=== PATIENT | female | born 1960 | race Caucasian/White ===

== ENCOUNTER → 2017-10-04 15:24 | Outpatient (CLI) | payer MEDICARE, SELFPAY ==
--- NOTE | 2017-10-04 15:36 | XR_ITS ---
Left foot Weightbearing Foot 3 Views HISTORY: ITS.REASON: LT FOOT INJURY ORDERING PHYSICIAN: Katty Delatorre PATIENT AGE: 57 years COMPARISON: None FINDINGS: No fracture or dislocation. Minimal hypertrophic changes are present in the midfoot dorsally. 9 mm calcaneal spur. Normal alignment. IMPRESSION: Mild degenerative changes as described above, no acute finding
== END ==
PROVIDERS: PCP Nurse Practitioner Family; Visit Provider Nurse Practitioner Family
DX: S99.922A Unspecified injury of left foot, initial encounter (principal)
CPT/HCPCS: 73630

== ENCOUNTER → 2017-12-10 12:24 | Outpatient (CLI) | payer MEDICARE, SELFPAY ==
[2017-12-10 13:10] LABS: Alanine Aminotransferase 28 U/L (12-78); Albumin Level 3.4 gm/dL (3.4-5.0); Albumin/Globulin Ratio 0.9 (1.1-1.8); Alkaline Phosphatase 77 U/L (46-116); Bilirubin,Total 0.2 mg/dL (0.2-1.0); Blood Urea Nitrogen 19 mg/dL (7-18); Calcium 9.3 mg/dL (8.5-10.1); Carbon Dioxide 29 mmol/L (21.0-32.0); Creatinine,Serum 0.97 mg/dL (0.55-1.02); Estimated Glomerular Filt Rate 59 ml/min (>60); GFR (African American) 72 ML/MIN (>60); Glucose 108 mg/dL (74-106); Sodium 140 mmol/L (136-145); Total Protein,Serum 7.4 gm/dL (6.4-8.2)
[2017-12-10 14:15] LABS: Anion Gap 11.8 mEq/L (5-15); Chloride 103 mmol/L (98-107)
[2017-12-10 15:17] LABS: Aspartate Amino Transferase 23 U/L (15-37); Potassium 3.8 mmoL/L (3.5-5.1)
== END ==
PROVIDERS: Visit Provider Nurse Practitioner Family
DX: I10 Essential (primary) hypertension (principal)
CPT/HCPCS: 36415; 80053

== ENCOUNTER → 2018-07-25 12:20 | Outpatient (CLI) | payer MEDICARE, SELFPAY ==
--- NOTE | 2018-07-25 12:36 | XR_ITS ---
XR ankle wt bearing RT min 3V HISTORY: ITS.REASON: pain ORDERING PHYSICIAN: Magi Young DPM PATIENT AGE: 57 years Comparison: None FINDINGS: There is an old distal tibia and fibular fracture with callus formation at fracture site. There is an intramedullary massimo within the distal tibia. At the distal aspect of the right laterally there is a distal tip of the screw. The proximal aspect of the screw and the screw head is missing. There are no previous exams available for comparison. Ankle joint itself has an unremarkable appearance. IMPRESSION: Unremarkable ankle. Old healed distal tib-fib fracture with a tibial intramedullary massimo and a screw fragment noted laterally
--- NOTE | 2018-07-25 12:36 | XR_ITS ---
XR foot wt bearing LT 3V HISTORY: ITS.REASON: pain ORDERING PHYSICIAN: Magi Young DPM PATIENT AGE: 57 years COMPARISON: None FINDINGS: No fracture or dislocation. No lytic or blastic change. There is normal mineralization.. The joint spaces are well-preserved. No significant degenerative/arthritic changes. No erosive changes evident. There is a prominent calcaneal spur IMPRESSION: Negative, no acute finding
--- NOTE | 2018-07-25 12:36 | XR_ITS ---
XR ankle wt bearing LT min 3V HISTORY: ITS.REASON: pain ORDERING PHYSICIAN: Magi Young DPM PATIENT AGE: 57 years Comparison: None FINDINGS: No fracture or dislocation. No lytic or blastic change. There is normal mineralization.. The joint spaces are well-preserved. No significant degenerative/arthritic changes. No erosive changes evident. IMPRESSION: Negative ankle, no acute finding
--- NOTE | 2018-07-25 12:36 | XR_ITS ---
XR foot wt bearing RT 3V HISTORY: ITS.REASON: pain ORDERING PHYSICIAN: Magi Young DPM PATIENT AGE: 57 years COMPARISON: None FINDINGS: No fracture dislocation. No lytic or blastic change. There is normal mineralization.. The joint spaces are well-preserved. No significant degenerative/arthritic changes. No erosive changes evident. There is a prominent calcaneal spur nonspecific IMPRESSION: Negative, no acute finding
== END ==
PROVIDERS: PCP Nurse Practitioner Family; Visit Provider Podiatrist
DX: M76.821 Posterior tibial tendinitis, right leg (principal); M76.822 Posterior tibial tendinitis, left leg; M79.672 Pain in left foot; M79.671 Pain in right foot
CPT/HCPCS: 73610; 73630

== ENCOUNTER → 2019-07-06 14:53 | Outpatient (CLI) | payer MEDICARE, SELFPAY ==
--- NOTE | 2019-07-06 15:03 | XR_ITS ---
PROCEDURE: XR KNEE LT 3V CLINICAL INDICATION: LT KNEE PAIN COMPARISON: No exams were available for comparison FINDINGS: No fracture or dislocation. No lytic or blastic change. There is normal mineralization. The joint spaces are well-preserved. No significant degenerative/arthritic changes. No erosive changes evident. Other findings:None. IMPRESSION: No acute findings. Dictated by: Ruslan Marley MD 07/06/2019 17:11 Electronically signed by Ruslan Marley MD in [place] 07/06/2019 17:11
== END ==
PROVIDERS: PCP Nurse Practitioner Family; Visit Provider Nurse Practitioner Family
DX: M25.562 Pain in left knee (principal)
CPT/HCPCS: 73562

== ENCOUNTER → 2019-07-26 13:02 | Outpatient (CLI) | payer MEDICARE, SELFPAY ==
--- NOTE | 2019-07-26 13:09 | XR_ITS ---
PROCEDURE: XR KNEE LT 4V CLINICAL INDICATION: left knee pain COMPARISON: XR KNEE LT 3V from 07/06/2019 FINDINGS: No fracture or dislocation. No lytic or blastic change. There is normal mineralization. There is minimal spurring along the lateral aspect of the patella and superior aspect of the patella. There is slight decrease in the medial joint space. IMPRESSION: Minimal osteoarthritic changes Dictated by: Ruslan Marley MD 07/26/2019 13:32 Electronically signed by Ruslan Marley MD in [place] 07/26/2019 13:32
== END ==
PROVIDERS: PCP Nurse Practitioner Family; Visit Provider Orthopaedic Surgery
DX: M25.562 Pain in left knee (principal)
CPT/HCPCS: 73564

== ENCOUNTER → 2019-08-09 13:23 | Outpatient (CLI) | payer MEDICARE, SELFPAY ==
--- NOTE | 2019-08-09 13:23 | MR_ITS ---
PROCEDURE: MR KNEE LT WO CON CLINICAL INDICATION: evaluate for meniscus tear Left knee pain, medial sided knee pain COMPARISON: XR KNEE LT 4V from 07/26/2019 TECHNIQUE: Routine multiplanar multi echo sequences are performed without gadolinium enhancement. FINDINGS: Cruciate ligaments appear intact. There is some increased T2 signal involving the proximal aspect of the medial collateral ligament suggesting a sprain without definite tear. Lateral collateral ligament is intact. The patellar tendon and quadriceps tendon have an unremarkable appearance. No definite medial meniscal tear. There is increased T2 signal involving the anterior horn of the lateral meniscus but does not appear to communicate with the meniscal surface on more than 1 image and does not meet strict MRI criteria for meniscal tear. The patellar cartilage is preserved. There is a small knee joint effusion. There is a small amount of prepatellar edema. There are minimal osteoarthritic changes with minimal spurring along the distal femur and proximal tibia and dorsal patella. There is some slight heterogeneous increased T2 signal along the distal shaft of the femur dorsally may be related to some residual red marrow. IMPRESSION: 1. Sprain of the medial collateral ligament. 2. Small knee joint effusion with minimal osteoarthritic change. 3. No definite meniscal tear or cruciate ligament tear Dictated by: Ruslan Marley MD 08/10/2019 18:55 Electronically signed by Ruslan Marley MD in [place] 08/10/2019 18:55
== END ==
PROVIDERS: PCP Nurse Practitioner Family; Visit Provider Orthopaedic Surgery
DX: M25.562 Pain in left knee (principal)
CPT/HCPCS: 73721

== ENCOUNTER → 2020-02-22 11:36 | Outpatient (POV) | payer MEDICARE, SELFPAY ==
[2020-02-22 11:55] VITALS: BP 135/88; PULSE 85; RESP 18; O2SAT 98; BMI 35.2
--- NOTE | 2020-02-22 15:59 | HMH.PMCON ---
Assessment and Plan (1) Bilateral foot pain Current visit: Yes Status: Chronic Category: Medical Code(s): M79.671 - Pain in right foot; M79.672 - Pain in left foot (2) CRPS (complex regional pain syndrome type I) Current visit: Yes Status: Chronic Qualifiers: Complex regional pain syndrome affected site: lower extremity Laterality: bilateral Qualified Code(s): G90.523 - Complex regional pain syndrome I of lower limb, bilateral Category: Medical Code(s): G90.50 - Complex regional pain syndrome I, unspecified - Assessment and plan all Dx Assessment and Plan for all problems:: We will set the patient up for sympathetic nerve block we will then set her up for physical therapy immediately after this. I will follow-up with her after this reassess her symptoms at that time she is to continue with her Lyrica and tramadol. she has been instructed to call the office if she has any issues prior to her next appointment. Dr. Lyle has reviewed this note and agrees with this plan of care. This note was dictated using voice recognition software and may contain errors or omissions HPI - Data of Consult Consult date: 02/22/20 Requesting Physician: Dana Leyva APRN Primary Care Provider: Katty Delatorre APRN - Consult Narrative Reason for consult: Right lower leg pain History of present illness: Ms. Osorio is a 59 year old female for consultation in regards to her pain in her bilateral feet. She has continual numbness and tingling in bilateral legs and feet. This comes secondary after a trauma that she endured 24 years ago. She had a compound fracture with surgical intervention at the time. Patient has had numbness and tingling since. Patient is currently on Lyrica and tramadol. Patient states that this is slightly beneficial however she is still having difficulty with activities of daily living. She rates her pain today a 7 out of 10. She has difficulty with walking. She has noted color changes, swelling, temperature changes in her bilateral lower extremities. Patient and I discussed options in regards to treatment. She has had no formal physical therapy. We discussed sympathetic nerve blocks along with physical therapy to see if this is beneficial. Patient's not on any anticoagulation therapy. CC: Dana Leyva APRN [facility] History I have reviewed the patient's past medical history: Yes Medical History: Reports:: Hypertension Denies:: Cancer, Diabetes Mellitus Type 1, Diabetes Mellitus Type 2, MRSA *Have you ever received a pneumonia vaccine?: No *Have you received a flu vaccine this season?: No Other Medical History: Reports: Arthritis Laterality Cases: Right: Other Other Surgeries: Yes: Cholecystectomy, Other Amputation: No Fractures: No - *Social History Smoking Status: Never smoker Alcohol Intake: never Alcohol Intake Frequency:: a few times a week Substance Use Type: denies use *Occupational Status:: other Housing: house Household Members: other *Travel in the last 8 weeks: None Family Hx:: Unable to obtain Review of Systems - Review of Systems ROS General: no recent weight change, no fever, no sleep disturbances Respiratory: no cough, no shortness of air, no recurring pulmonary infections Cardiovascular/Peripheral Vascular: No chest pain, No palpitations, no edema, no shortness of breath. Gastrointestinal: no new onset incontinence, normal bowel movements reported Genitourinary: no new onset incontinence Musculoskeletal: Bilateral leg and foot pain Psychiatric: normal mood/ affect Neurological: [denies new onset weakness in extremities], [denies new onset balance issues] Meds Home Medications Medication Instructions Recorded Confirmed Type lisinopril 5 mg tablet 5 mg PO DAILY 06/14/18 08/08/18 History tramadol 50 mg tablet 50 mg PO Q6H 06/14/18 08/08/18 History Allergies Allergy/AdvReac Type Severity Reaction Status Date / Time No Known Allergie
== END ==
PROVIDERS: PCP Nurse Practitioner Family; Visit Provider Clinical Nurse Specialist Family Health
DX: M79.671 Pain in right foot (principal); G90.523 Complex regional pain syndrome I of lower limb, bilateral
CPT/HCPCS: 99202

== ENCOUNTER 2020-03-22 12:55 | Day surgery (SDC) | payer MEDICARE, SELFPAY ==
[2020-03-22 13:29] VITALS: BP 180/91; PULSE 78; RESP 18; TEMP 36.6; O2SAT 98; BMI 33.6
--- NOTE | 2020-03-22 13:41 | HMH.PMPROC ---
- Procedure Date: 03/22/20 Time: 13:41 Anesthesiologist:: Jeet Lyle MD Complications:: None Pre-procedure Diagnosis:: CRPS type I symptoms of both lower extremities Post-procedure Diagnosis:: Same Indications for Procedure:: This patient is a pleasant 59-year-old white female who we are treating for bilateral foot pain. Patient has continuous numbness and tingling in both feet. She had compound fracture to both lower extremities and has had significant issues since then. She has noted color changes, swelling temperature changes in bilateral lower extremities. Given her autonomic symptoms in her lower extremities we will do a lumbar epidural sympathetic block today followed by physical therapy to see if this will help with her pain symptoms. Procedure Details:: Lumbar epidural sympathetic block Informed consent was obtained and the risk and benefits of the procedure was explained to the patient. The patient was taken to the procedure room. The patient was placed prone on the procedure table. The patient was prepped and draped in sterile fashion. C-arm fluoroscopy was used to view the lumbar spine. Skin and subcutaneous tissues were anesthetized using lidocaine. I placed an 18-gauge epidural needle and advanced into the L4-L5 interspace using fluoroscopic guidance and [id number] to air. After confirmation of needle placement in the epidural space with dye I injected 8 mL of lidocaine 1.5% with Depo-Medrol 80 mg. Patient tolerated the procedure well with no complications. Plan and Disposition:: She is to follow this with physical therapy today. We will follow-up with her in 2 weeks. Will reevaluate symptoms at that time. If she does not get any relief with lumbar epidural sympathetic blocks and physical therapy she may be a candidate for spinal cord stimulation in the future for long-term relief.
[2020-03-22 13:46] VITALS: BP 147/78; PULSE 85; RESP 18; O2SAT 98
[2020-03-22 14:03] VITALS: BP 175/95; PULSE 75; RESP 18; O2SAT 98
== END 2020-03-22 14:04 | disposition home or self-care (01) ==
LOC: SC.PAINP 12:56
PROVIDERS: PCP Nurse Practitioner Family; Visit Provider Anesthesiology
DX: G90.523 Complex regional pain syndrome I of lower limb, bilateral; I10 Essential (primary) hypertension; E78.5 Hyperlipidemia, unspecified; B19.20 Unspecified viral hepatitis C without hepatic coma; Z90.49 Acquired absence of other specified parts of digestive tract; Z79.899 Other long term (current) drug therapy
CPT/HCPCS: 62323; 64520; J1040; Q9966

== ENCOUNTER → 2020-04-15 08:46 | Outpatient (POV) | payer MEDICARE, SELFPAY ==
[2020-04-15 08:48] VITALS: BP 132/88; PULSE 78; RESP 18; O2SAT 98; BMI 32.8
--- NOTE | 2020-04-15 09:09 | HMH.PAINSOAP ---
[facility] Pain Management SOAP Note Subjective:: Ms. Osorio is a 59 year old female for follow-up after sympathetic nerve block for her pain in her bilateral feet. She has continual numbness and tingling in bilateral legs and feet. This comes secondary after a trauma that she endured 24 years ago. She had a compound fracture with surgical intervention at the time. Patient has had numbness and tingling since. Patient is currently on Lyrica and tramadol. Patient states that this is slightly beneficial however she is still having difficulty with activities of daily living. She rates her pain today a 5 out of 10. She has difficulty with walking. She has noted color changes, swelling, temperature changes in her bilateral lower extremities. Patient did extremely well with her sympathetic nerve block. She rates her pain today a 5 out of 10. Patient states that prior to her injection she was unable to walk her dogs more than a half a mile. Patient states that after her injection she is now able to walk a mile. Patient is interested in pursuing spinal cord stimulation. We discussed a plan of care that included a second sympathetic nerve block and moving forward with a psychological evaluation. ROS General: no recent weight change, no fever, no sleep disturbances Respiratory: no cough, no shortness of air, no recurring pulmonary infections Cardiovascular/Peripheral Vascular: No chest pain, No palpitations, no edema, no shortness of breath. Gastrointestinal: no new onset incontinence, normal bowel movements reported Genitourinary: no new onset incontinence Musculoskeletal: Bilateral foot pain Psychiatric: normal mood/ affect Neurological: [denies new onset weakness in extremities], [denies new onset balance issues] Objective:: Physical Exam General: Alert and oriented x3, no acute distress, pleasant and cooperative, [on room air] Lungs: Resps E/U, Symmetrical chest expansion, Eyes: PERRL Musculoskeletal: [place] bilateral feet somewhat guarded secondary to pain, deep tendon reflexes normal, strength in upper and lower extremities [5/5], [abnormal gait noted], Neurological: speech clear, christmas tree grader equal, patient has decreased sensation to palpation bilateral lower extremities, she has noted color changes bilateral feet. She also has noted temperature differences between her feet. Assessment:: CRPS type I bilateral lower extremity Plan:: We will set her up for psychological evaluation to pursue spinal cord stimulation with a [employer] stimulator. We will also set her up for repeat sympathetic block given the temporary relief that she did receive from it. I do believe it would benefit her to repeat it. Patient does physical therapy post injection. I will follow up with her after this reassess her symptoms at that time she is not on any anticoagulation therapy. Dr. Lyle has reviewed this note and agrees with this plan of care. This note was dictated using voice recognition software and may contain errors or omissions [facility] History I have reviewed the patient's past medical history: Yes Medical History: Reports:: Hyperlipidemia, Hypertension Denies:: Cancer, Diabetes Mellitus Type 1, Diabetes Mellitus Type 2, MRSA, Seizures *Have you ever received a pneumonia vaccine?: Yes *Have you received a flu vaccine this season?: Yes Other Medical History: Reports: Arthritis. Denies: Blood Transfusion Reaction Laterality Cases: Right: Other Other Surgeries: Yes: Cholecystectomy, Other Amputation: No Fractures: No - *Social History Smoking Status: Never smoker Alcohol Intake: never Alcohol Intake Frequency:: a few times a week Substance Use Type: denies use *Occupational Status:: other Housing: house Household Members: spouse, children *Travel in the last 8 weeks: None Family Hx:: Unable to obtain
== END ==
PROVIDERS: PCP Nurse Practitioner Family; Visit Provider Clinical Nurse Specialist Family Health
DX: G90.523 Complex regional pain syndrome I of lower limb, bilateral
CPT/HCPCS: 99212

== ENCOUNTER 2020-04-26 12:53 | Day surgery (SDC) | payer MEDICARE, SELFPAY ==
[2020-04-26 12:56] VITALS: BP 147/85; PULSE 64; RESP 18; TEMP 36.4; O2SAT 100; BMI 32.8
[2020-04-26 13:12] VITALS: BP 140/74; PULSE 85; RESP 18; O2SAT 98
[2020-04-26 13:15] VITALS: BP 142/78; PULSE 85; RESP 18; O2SAT 98
--- NOTE | 2020-04-26 13:27 | P.PCN_ITS ---
- Procedure Date: 04/26/20 Time: 13:27 Anesthesiologist:: Jeet Lyle MD Complications:: None Pre-procedure Diagnosis:: Complex regional pain syndrome type I of bilateral lower extremities and low back pain Post-procedure Diagnosis:: Same Indications for Procedure:: Patient is a pleasant 59-year-old white female who we are treating for pain in both feet with complex regional pain syndrome type I. Also she has some increasing low back pain. Low back pain has worsened since her last injection. She is not tender over the area there is no redness. There is no induration and there is no swelling. She has had increasing pain with activity. We will do a repeat lumbar epidural sympathetic block today to see if this will help with her pain symptoms. Procedure Details:: Lumbar epidural sympathetic block Informed consent was obtained and the risk and benefits of the procedure was explained to the patient. The patient was taken to the procedure room. The patient was placed prone on the procedure table. The patient was prepped and draped in sterile fashion. C-arm fluoroscopy was used to view the lumbar spine. Skin and subcutaneous tissues were anesthetized using lidocaine. I placed an 18-gauge epidural needle and advanced into the L5-S1 interspace using fluoroscopic guidance and [id number] to air. After confirmation of needle placement in the epidural space with dye I injected 6 mL of lidocaine 1.5% with Depo-Medrol 80 mg. Patient tolerated the procedure well with no complications. Plan and Disposition:: We will follow-up with patient in 1 week. We will reevaluate her symptoms. I am concerned that she is having increasing back pain since the injection. Also immediately after this injection she did have some increased back pain despite injecting local in the area. She may have an aspect of spinal stenosis. We will put her on prednisone 20 mg twice a day to see if this helps with her infla mmation. If this does not help with her symptoms I would recommend repeating an MRI of the lumbar spine.
[2020-04-26 13:36] VITALS: BP 186/89; PULSE 74; RESP 18; O2SAT 100
== END 2020-04-26 13:38 | disposition home or self-care (01) ==
LOC: SC.PAINP 12:54
PROVIDERS: PCP Nurse Practitioner Family; Visit Provider Anesthesiology
DX: M54.9 Dorsalgia, unspecified (principal); G90.523 Complex regional pain syndrome I of lower limb, bilateral
CPT/HCPCS: 64520; J1040; Q9966

== ENCOUNTER → 2020-04-29 10:38 | Outpatient (CLI) | payer MEDICARE, SELFPAY ==
--- NOTE | 2020-04-29 10:41 | MR_ITS ---
PROCEDURE: MR LUMBAR SPINE WO CON CLINICAL INDICATION: BACK PAIN LOWER BACK PAIN, BILATERAL LEG PAIN DOWN TO FEET. NO INJURY. NO PRIOR COMPARISON: MR MR KNEE LT WO CON from 08/09/2019 TECHNIQUE: Standard multiplanar multiecho sequences are performed without contrast. 3-D MIP and myelographic images are also rendered and reviewed FINDINGS: There is normal alignment. The spinal cord ends at the T12 area. L1-L2: Type 2 endplate changes involve the inferior endplate anteriorly at L1. L2-L3: Unremarkable. L3-L4: Mild facet and ligamentum hypertrophy. L4-5: Minimal bulging disc. Facet and ligamentum hypertrophy with bilateral lateral recess and foraminal narrowing with borderline narrowing of the canal. L5-S1: Mild facet ligamentum hypertrophy IMPRESSION: 1. Mild lumbar spondylosis as described above. 2. No extruded herniated disc evident. Dictated by: Ruslan Marley MD 05/01/2020 09:25 Ruslan Marley MD in [place] 05/01/2020 09:25
== END ==
PROVIDERS: PCP Nurse Practitioner Family; Visit Provider Anesthesiology
DX: M54.5 Low back pain (principal)
CPT/HCPCS: 72148; 76376

== ENCOUNTER → 2020-05-20 10:24 | Outpatient (POV) | payer MEDICARE, SELFPAY ==
[2020-05-20 10:37] VITALS: BP 144/74; PULSE 85; RESP 18; TEMP 36.8; O2SAT 98; BMI 34.5
--- NOTE | 2020-05-20 10:52 | HMH.PAINSOAP ---
[facility] Pain Management SOAP Note Subjective:: Patient is a pleasant 59-year-old white female who presents today for follow-up after sympathetic nerve block. Patient does well with these. She rates her pain a 4 out of 10. She still has constant pain however her sharp debilitating pain has subsided somewhat. Patient is continuing to work. Patient did have some back pain after her injection however that is all subsided as well. She had an MRI which showed mild spondylosis. Patient is being treated for complex regional pain syndrome bilateral lower extremities. Patient has had multiple surgeries on her feet and has developed pain, swelling, color changes, temperature changes to her feet. ROS General: no recent weight change, no fever, no sleep disturbances Respiratory: no cough, no shortness of air, no recurring pulmonary infections Cardiovascular/Peripheral Vascular: No chest pain, No palpitations, no edema, no shortness of breath. Gastrointestinal: no new onset incontinence, normal bowel movements reported Genitourinary: no new onset incontinence Musculoskeletal: bilateral foot pain Psychiatric: normal mood/ affect Neurological: Numbness tingling bilateral lower extremities, [denies new onset balance issues] Objective:: Physical Exam General: Alert and oriented x3, no acute distress, pleasant and cooperative, [on room air] Lungs: Resps E/U, Symmetrical chest expansion, Eyes: PERRL Musculoskeletal: Motion bilateral feet somewhat guarded secondary to pain, deep tendon reflexes normal, strength in upper and lower extremities [5/5], [abnormal gait noted] Neurological: speech clear, picture booker equal, no gross sensory deficits Assessment:: Complex regional pain syndrome type I bilateral lower extremities Plan:: Patient has her psychological evaluation scheduled for the of this month. I do believe she would be a good neurostimulator candidate. We had a long discussion and I answered her questions. I will follow-up with her after psychological evaluation reassess her symptoms at that time she has been instructed to call the office if she has any issues prior to her next appointment. Dr. Lyle has reviewed this note and agrees with this plan of care. This note was dictated using voice recognition software and may contain errors or omissions [facility] [place] History I have reviewed the patient's past medical history: Yes Medical History: Reports:: Hyperlipidemia, Hypertension Denies:: Cancer, Diabetes Mellitus Type 1, Diabetes Mellitus Type 2, MRSA, Seizures *Have you ever received a pneumonia vaccine?: No *Have you received a flu vaccine this season?: No Other Medical History: Reports: Arthritis. Denies: Blood Transfusion Reaction Laterality Cases: Right: Other Other Surgeries: Yes: Cholecystectomy, Other (fall (massimo in tib/fib R leg)) Amputation: No Fractures: No - *Social History Smoking Status: Never smoker Alcohol Intake: never Alcohol Intake Frequency:: a few times a week Substance Use Type: denies use *Occupational Status:: other Housing: house Household Members: spouse *Travel in the last 8 weeks: None Family Hx:: Unable to obtain
== END ==
PROVIDERS: PCP Nurse Practitioner Family; Visit Provider Clinical Nurse Specialist Family Health
DX: G90.523 Complex regional pain syndrome I of lower limb, bilateral
CPT/HCPCS: 99212

== ENCOUNTER 2020-05-29 09:00 | Outpatient (RCR) | payer MEDICARE, SELFPAY ==
--- NOTE | 2020-03-22 15:29 | HMH.PTOPEV ---
PT Outpatient Evaluation Rehab PT Outpatient Evaluation Start: 03/22/20 14:08 Freq: Status: Active Protocol: Document 03/22/20 14:35 SARAH (Rec: 03/22/20 15:29 SARAH [id number]) Electronically Signed By Norman Beth, PT 03/22/20 14:35 Outpatient Therapy Subjective History Subjective History Pt reports h/o chronic B feet/ ankle/calf/lower leg pain. Pt reports sereve R tib/fib compound fx ~20yrs ago, w/ORIF sx., and reports chronic compensatory gait pattern related to injury, and severe R achilles shortening d/t post -op positioning. Pt reports B feet/ankle pain, weakness, swelling, stiffness. Chief Complaint Pain,Stiff,Swelling,Weakness Symptom Type Ache,Dull Symptoms Relieved By Rest/Positioning,Heat Symptoms Aggravated By Standing,Physical Activity, Walking Prior Functional Limitations Housework,Standing,Walking, Stairs Current Functional Limitations Housework,Standing,Walking, Stairs Symptom Description Constant but Variable Level of pain today (0-10) 4 Pain scale - at its best (0-10) 3 Pain scale - at its worst (0-10) 9 Ankle/Foot Eval Gait Observation General Gait Pattern Observation Antalgic Gait Palpation Tenderness bilateral Ankle/Foot Palpation Findings Tenderness,Trigger Point Ankle/Foot Palpation Overall Comment ant tib mm, gastroc, L peroneals ROM left Ankle/Foot Dorsiflexion w/Knee Extended 0 Active Range Motion (degrees) Ankle/Foot Plantar Flexion Active Range 0-42 of Motion (degrees) Ankle/Foot Eversion Active Range of 0-8 Motion (degrees) Ankle/Foot Inversion Active Range of 0-10 Motion (degrees) Ankle/Foot ROM Limitations Pain Great Toe ROM Limitations Soft Tissue Tightness,Pain right Ankle/Foot Dorsiflexion w/Knee Extended 0 Active Range Motion (degrees) Ankle/Foot Plantar Flexion Active Range 0-45 of Motion (degrees) Ankle/Foot Eversion Active Range of 0-10 Motion (degrees) Ankle/Foot Inversion Active Range of 0-20 Motion (degrees) Great Toe ROM Limitations Soft Tissue Tightness,Pain MMT bilateral Ankle Dorsiflexion Strength Grade 4- Good- Ankle Plantarflexion Strength Grade 4- Good- Foot Eversion Strength Grade 3+ Fair+ Foot Inversion Strength Grade 3+ Fair+ Special Tests Ankle Anterior Drawer Test Positive Left,Positive R
--- NOTE | 2020-04-23 13:19 | HMH.RHREAS ---
Rehab Reassessment Rehab OP Re-assessment Start: 04/23/20 13:04 Freq: Status: Active Protocol: Document 04/23/20 13:04 [email or web address] (Rec: 04/23/20 13:19 [email or web address] [email or web address]) Electronically Signed By Norman Beth, PT 04/23/20 13:04 Rehab Re-assessment Subjective Subjective PT REPORTS 5-10 B FEET/ANKLE PAIN ON VAS, AND FEELS ~30-40 % BETTER OVERALL SINCE I EVAL Objective Objective Notes AROM: B ANKLE DF 0, PF 0-45, INV 0-25, EVR 0-15 MMT: B ANKLE DF 4/5, PF 4+/5, INV 4/5, EVR 4/5 TTP: B ANKLE PERONEAL INSERTION 3/4, ACHILLES INSERTION 3/4, SINUS TARSI 1-2 /4 Assessment Progress Assessment Progressing as Expected Assessment Notes PT W/SLIGHT PROGRESS W/ STRENGTH Patient goals met STG'S 11/02 LTG'S 08/08 Goals Not Met STG'S 09/02, LTG'S 03/08 Plan Plan PT TO CONT. W/SKILLED P.T. TO MAKE FURTHER IMPROVEMENTS IN AROM, STRENGTH, AND TTP TO ALLOW FOR OPTIMAL FUNCTION Frequency of Therapy 1-2X/WK Duration of therapy 2-4WKS Time and Billing Re-Eval Time 15 Re-Eval Billing Units 0 PHYSICIAN CERTIFICATION: I certify the specified therapy services for Leann Osorio are required, authorized, and reviewed every 30 days.
--- NOTE | 2020-05-29 09:42 | HMH.RHREAS ---
Rehab Reassessment Rehab OP Re-assessment Start: 04/23/20 13:04 Freq: Status: Active Protocol: Document 05/29/20 09:10 SARAH (Rec: 05/29/20 09:42 SARAH [id number]) Electronically Signed By Norman Beth, PT 05/29/20 09:10 Rehab Re-assessment Subjective Subjective PT REPORTS IMPROVED 2/10 B FEET/ANKLE PAIN ON VAS, AND FEELS ~60-65% BETTER OVERALL SINCE I EVAL Objective Objective Notes AROM: B ANKLE DF 0, PF 0-45, INV 0-30, EVR 0-15 MMT: B ANKLE DF 4+/5, PF 4+/5, INV 4+/5, EVR 4/5 TTP: B ANKLE PERONEAL INSERTION 1-2/4, ACHILLES INSERTION 1-2/4, SINUS TARSI 1 -2/4 Assessment Progress Assessment Progressing as Expected Assessment Notes PT W/ PROGRESS W/STRENGTH, ROM , AND TTP Patient goals met STG'S 01/02 LTG'S 12/06 Goals Not Met STG'S 07/05, LTG'S 11/05 Plan Plan PT TO CONT. W/SKILLED P.T. TO MAKE FURTHER IMPROVEMENTS IN AROM, STRENGTH, AND TTP TO ALLOW FOR OPTIMAL FUNCTION Frequency of Therapy 1-2X/WK Duration of therapy 3-4WKS Time and Billing Re-Eval Time 15 Re-Eval Billing Units 0 PHYSICIAN CERTIFICATION: I certify the specified therapy services for Leann Osorio are required, authorized, and reviewed every 30 days.
== END 2020-05-29 09:05 | disposition home or self-care (01) ==
LOC: PT 09:00
PROVIDERS: PCP Nurse Practitioner Family; Visit Provider Clinical Nurse Specialist Family Health
DX: M79.672 Pain in left foot (principal); M79.671 Pain in right foot
CPT/HCPCS: 97010; 97014; 97035; 97110; 97112; 97113; 97140; 97163; 97164; G0283

== ENCOUNTER → 2021-02-07 10:00 | Outpatient (POV) | payer MEDICARE, SELFPAY ==
[2021-02-07 10:34] VITALS: BP 166/94; PULSE 77; RESP 20; TEMP 36.6; O2SAT 98; BMI 35.4
--- NOTE | 2021-02-07 10:53 | P.CONS_ITS ---
[facility] Pain Management SOAP Note Subjective:: This patient is a pleasant 59-year-old white female who we have been seeing for bilateral CRPS type I symptoms of both lower extremities. She has had multiple surgeries to both feet. She has pain in both feet and lower legs. She has not gotten much benefit from previous injective therapy. She is not a surgical candidate. She has also done physical therapy without much long-term benefit. Pain score is a 4 out of 10. Pain worsens and she does have swelling and discoloration towards the end of the day. We have talked about different options including spinal cord stimulation. I do believe she would be a good candidate for spinal cord stimulation to help with her CRPS type I symptoms. Objective:: Alert and oriented x3 no acute distress. Patient does have an antalgic gait. Motor strength of the lower extremities is 5/5. There is no gross sensory deficit. Patient does have some swelling and discoloration of both feet and ankle areas. Assessment:: Complex regional pain syndrome type I of both lower extremities with degenerative disc disease of lumbar spine with lumbar radiculopathy symptoms. Plan:: We will seek approval and plan on spinal cord stimulator trial to help with complex regional pain syndrome type I symptoms of both feet. This will be with the [employer] system with lead placement of T8-9-10. [facility] History Medical History: Reports:: Hyperlipidemia, Hypertension Denies:: Cancer, Diabetes Mellitus Type 1, Diabetes Mellitus Type 2, MRSA, Seizures *Have you ever received a pneumonia vaccine?: No *Have you received a flu vaccine this season?: Yes Other Medical History: Reports: Arthritis. Denies: Blood Transfusion Reaction Laterality Cases: Right: Other Other Surgeries: Yes: Cholecystectomy, Other (fall (massimo in tib/fib R leg)) Amputation: No Fractures: No - *Social History Smoking Status: Never smoker Alcohol Intake: never Alcohol Intake Frequency:: a few times a week Substance Use Type: denies use *Occupational Status:: other Housing: house Household Members: spouse *Travel in the last 8 weeks: None Family Hx:: Unable to obtain
== END ==
LOC: SC.PAIN 10:02
PROVIDERS: PCP Nurse Practitioner Family; Visit Provider Anesthesiology
DX: M51.16 Intervertebral disc disorders with radiculopathy, lumbar region (principal); G90.523 Complex regional pain syndrome I of lower limb, bilateral
CPT/HCPCS: 99212; G0463

== ENCOUNTER → 2021-09-26 15:04 | Outpatient (CLI) | payer MEDICARE, SELFPAY | PROVIDERS: PCP Nurse Practitioner Family; Visit Provider Nurse Practitioner Family | DX: R00.0 Tachycardia, unspecified (principal) | CPT/HCPCS: 93225; 93226 ==

== ENCOUNTER → 2022-02-27 09:43 | Outpatient (CLI) | payer MEDICARE, SELFPAY ==
[2022-02-27 10:26] LABS: Basophils # 0.1 K/mm3 (0-0.2); Basophils % 1.7 % (0.1-2.0); Eosinophils # 0.2 K/mm3 (0.0-0.4); Eosinophils % 2.5 % (0.1-12.0); Hematocrit 43.4 % (37.0-47.0); Hemoglobin 13.2 g/dL (12.2-16.2); Lymphocytes # 2.9 K/mm3 (0.7-4.5); Lymphocytes % 38.2 % (10-50); Mean Corpuscular HGB Conc 30.4 g/dL (31.8-35.4); Mean Corpuscular Hemoglobin 30.5 pg (27.0-31.2); Mean Corpuscular Volume 100.4 fl (81-99); Mean Platelet Volume 8.9 fl (7.4-10.4); Monocytes # 0.4 K/mm3 (0.1-1.0); Monocytes % 4.7 % (1.7-9.3); Neutrophils % 52.9 % (37.0-80.0); Platelet Count 245 K/mm3 (142-424); Red Blood Count 4.32 M/mm3 (4.20-5.40); Red Cell Distribution Width 13.4 % (11.5-17.5); White Blood Count 7.5 K/mm3 (4.8-10.8)
[2022-02-27 11:57] LABS: Chloride 107 mmol/L (98-107); Sodium 140 mmol/L (136-145)
[2022-02-27 11:58] LABS: Potassium 4.8 mmoL/L (3.5-5.1)
[2022-02-27 12:00] LABS: Alanine Aminotransferase 17 U/L (12-78); Alkaline Phosphatase 60 U/L (38-126); Amylase 51 U/L (30-110); Anion Gap 10.8 mEq/L (5-15); Aspartate Amino Transferase 27 U/L (14-36); Blood Urea Nitrogen 15 mg/dl (7-17); Carbon Dioxide 27 mmol/L (22.0-30.0); Estimated Glomerular Filt Rate 73 ml/min (>60); GFR (African American) 89 ML/MIN (>60); Lipase 87 U/L (23-300)
[2022-02-27 12:01] LABS: Albumin Level 4.1 g/dl (3.5-5.0); Albumin/Globulin Ratio 1.6 (1.1-1.8); Chol/HDL Ratio 6.8 (1-3.5); Cholesterol 306 mg/dl (140-200); Globulin 2.6 g/dL (1.3-3.2); HDL Cholesterol 45 mg/dl (40-60); Total Protein,Serum 6.7 g/dl (6.3-8.2); Triglycerides 298 mg/dl (30-150); VLDL Cholesterol 60 mg/dL (0-40)
[2022-02-27 12:03] LABS: Bilirubin,Total 0.1 mg/dl (0.2-1.3)
[2022-02-27 12:06] LABS: Calcium 9.8 mg/dl (8.4-10.2); Glucose 119 mg/dl (74-100)
[2022-02-27 12:09] LABS: NT Pro Brain Natriuretic Pep. 462 pg/mL (0-125)
[2022-02-27 22:57] LABS: Thyroid Stimulating Hormone 3.17 uIU/mL (0.465-4.68)
[2022-03-04 19:11] LABS: Direct LDL Cholesterol 197 mg/dL (100-129)
== END ==
PROVIDERS: PCP Nurse Practitioner Family; Visit Provider Nurse Practitioner Family
DX: R06.02 Shortness of breath (principal); R14.0 Abdominal distension (gaseous); E78.1 Pure hyperglyceridemia
CPT/HCPCS: 36415; 80053; 80061; 82150; 83690; 83880; 84443; 85025

== ENCOUNTER 2023-02-22 11:56 | Emergency (ER) | payer MEDICARE, SELFPAY ==
[2023-02-22] VITALS (11 sets, daily range): BP systolic 99–136; BP diastolic 59–75; PULSE 75–94; RESP 16–20; TEMP 36.4; O2SAT 96–99; BMI 29.7
--- NOTE | 2023-02-22 12:24 | PC.NURSE ---
Rounded on patient; no needs at this time. call [place] within reach
--- NOTE | 2023-02-22 12:40 | HMH.EDGENADL ---
Discharge Plan Disposition Patient Disposition: Home, Self-Care Prescriptions Prescriptions: No Action tramadol 50 mg tablet 50 mg PO Q6H pravastatin 10 mg tablet 10 mg PO DAILY lisinopril-hydrochlorothiazide 20-25 mg tablet 2 tab PO DAILY sertraline 50 mg tablet 50 mg PO DAILY fenofibrate 160 mg tablet 160 mg PO DAILY Referrals Follow up/Referrals: Katty Delatorre APRN [Primary Care Provider] - See instructions Maxine Murphy APRN [Nurse Practitioner] - See instructions (tomorrow morning at 8 am or 1030 am for a BMP recheck ) Activity Restrictions/Add. Instructions Additional Instructions/Restrictions: Please follow-up tomorrow with Charu Jeffrey here on campus at 8 AM or 10:30 AM. Care is with Dr. Rose who Dr. Delatorre will be joining later this week. He had acute kidney injury mild hypokalemia and they can follow-up on your stool studies. Clinical Impressions Clinical Impression: Diarrhea, MADI (acute kidney injury), Hypokalemia Instructions Patient Instructions: DI for Acute Abdominal Pain Discharge ED Provider: Cecilia Cee General Adult HPI General Chief complaint: Abdominal Pain Stated complaint: diarrhea, possibly dehydrated,back pain Time Seen by Provider: 02/22/23 12:30 Mode of Arrival: Family Vehicle Source of Information: Patient Limitations: No Limitations Description of Symptoms (Recalled from ER Triage Doc. by RN): Pt c/o low abd pain with nausea, diarrhea, body aches, low back pain, and weakness that has progressively worsened over the past 2 wks. States she was [employer] [place] about 2-3 wks ago & had ran out of bottled water, so she decided to drink about 2 pint of river water without filtering/iodine tablet preparation. She reports 2 loretta after drinking the water she noticed the n/d, abd & back pain start. States whenever I eat now it goes straight through me . ABD is soft, non-tender at this time. Pt states the pain starts when she is about to have a bowel moevment. History of Present Illness HPI narrative: Patient is a 62-year-old female here with 2 weeks of diarrhea. States that she was [employer] record 2 to 3 weeks ago ran out of her bottled water and she began to drink river water 2 pints of this. She subsequently started getting sick 2 days later. She has been having significant abdominal crampy discomfort that intermittently is completely normal but she has had 7-10 loose bowel movements daily since that time. Without any significant improvement. No blood or mucus in her stool. She has not been having any vomiting. No fevers or chills. Related Data Home Medications Medication Instructions Recorded Confirmed tramadol 50 mg tablet 50 mg PO Q6H Pain 06/14/18 02/22/23 fenofibrate 160 mg tablet 160 mg PO DAILY Supplement 02/22/23 02/22/23 lisinopril 20 2 tab PO DAILY High Blood Pressure 02/22/23 02/22/23 mg-hydrochlorothiazide 25 mg tablet pravastatin 10 mg tablet 10 mg PO DAILY High Cholesterol 02/22/23 02/22/23 sertraline 50 mg tablet 50 mg PO DAILY Depression 02/22/23 02/22/23 Allergies Allergy/AdvReac Type Severity Reaction Status Date / Time No Known Allergies Allergy Verified 02/07/21 10:34 [facility] Disclaimer: The information contained in this section may have been updated after the patient was seen, as this information can be updated by other users. Medical History (Updated 02/22/23 @ 15:01 by Cecilia Cee MD) Depression Fracture, tibia and fibula High blood cholesterol level High blood pressure Social History Smoking Status: Current some day smoker alcohol intake: never substance use type: denies use current occupational status: other Travel in the last 8 weeks: None household members: spouse housing: house current occupation: caregiver current occupational exposures/hazards: No caffeine: Yes ROS Obtained: Yes All systems reviewed & no additional complaints except as documented
[2023-02-22 13:04] LABS: Basophils % 0.4 % (0.1-2.0); Eosinophils # 0.2 K/mm3 (0.0-0.4); Eosinophils % 1.4 % (0.1-12.0); Hematocrit 47.2 % (37.0-47.0); Hemoglobin 15.7 g/dL (12.2-16.2); Lymphocytes # 2.5 K/mm3 (0.7-4.5); Lymphocytes % 22.1 % (10-50); Mean Corpuscular HGB Conc 33.2 g/dL (31.8-35.4); Mean Corpuscular Volume 96.4 fl (81-99); Mean Platelet Volume 9.1 fl (7.4-10.4); Monocytes # 0.5 K/mm3 (0.1-1.0); Neutrophils # 8.2 K/mm3 (1.8-7.8); Neutrophils % 72.2 % (37.0-80.0); Platelet Count 304 K/mm3 (142-424); Red Cell Distribution Width 13.8 % (11.5-17.5); White Blood Count 11.4 K/mm3 (4.8-10.8)
[2023-02-22 13:14] LABS: Chloride 100 mmol/L (98-107); Sodium 137 mmol/L (136-145)
[2023-02-22 13:16] LABS: Alanine Aminotransferase 30 U/L (12-78); Aspartate Amino Transferase 36 U/L (14-36); Blood Urea Nitrogen 60 mg/dl (7-17); Creatinine Clearance Estimated 44 mL/min (50-200); Estimated Glomerular Filt Rate 33 ml/min (>60); GFR (African American) 40 ML/MIN (>60)
[2023-02-22 13:17] LABS: Albumin Level 3.9 g/dl (3.5-5.0); Albumin/Globulin Ratio 1.1 (1.1-1.8); Alkaline Phosphatase 82 U/L (38-126); Bilirubin,Total 0.4 mg/dl (0.2-1.3); Calcium 10.9 mg/dl (8.4-10.2); Carbon Dioxide 27 mmol/L (22.0-30.0); Globulin 3.4 g/dL (1.3-3.2); Glucose 156 mg/dl (74-100); Magnesium 1.8 mg/dl (1.6-2.3); Phosphorous 3.8 mg/dl (2.5-4.5); Total Protein,Serum 7.3 g/dl (6.3-8.2)
--- NOTE | 2023-02-22 13:19 | PC.NURSE ---
Received report from Apryl DIAZ; assumed patient care
--- NOTE | 2023-02-22 13:24 | PC.NURSE ---
Warm blanket provided to patient; updated on plan of care. Nothing else needed at this time; call [place] within reach of patient
--- NOTE | 2023-02-22 14:59 | PC.NURSE ---
MICAH QUISPE speaking with Maxine Hines APRN
[2023-02-22 15:06] LABS: Adenovirus F 40/41, stool Not Detected (NotDetected); Astrovirus Not Detected (NotDetected); Campylobacter Not Detected (NotDetected); Clostridium Difficile A/B, PCR Not Detected (NotDetected); Cryptosporidium Not Detected (NotDetected); Cyclospora Cayetanesis Not Detected (NotDetected); Entamoeba histolytica Not Detected (NotDetected); Enteroaggregative E coli Not Detected (NotDetected); Enteropathogenic E coli Not Detected (NotDetected); Enterotoxigenic E coli Not Detected (NotDetected); Giardia lamblia Not Detected (NotDetected); Norovirus Not Detected (NotDetected); Plesimonas Shigalloides, PCR Not Detected (NotDetected); Rotavirus A Not Detected (NotDetected); Salmonella, PCR Not Detected (NotDetected); Sapovirus Not Detected (NotDetected); Shiga-like toxin E coli Not Detected (NotDetected); Shigella Enterovasive E coli Not Detected (NotDetected); Vibrio Cholerae Not Detected (NotDetected); Vibrio, PCR Not Detected (NotDetected); Yersinia Entercolitica, PCR Not Detected (NotDetected)
--- NOTE | 2023-02-22 15:20 | PC.NURSE ---
Rounded on patient; nothing needed at this time. Call [place] within reach of patient
--- NOTE | 2023-02-22 15:46 | PC.NURSE ---
pt resting in bed no needs at this time,call light at bs
--- NOTE | 2023-02-22 16:21 | PC.NURSE ---
Rounded on patient; nothing needed at this time. Call [place] with reach of patient
== END 2023-02-22 16:42 | disposition home or self-care (01) ==
PROVIDERS: Student in an Organized Health Care Education/Training Program; Emergency Provider Emergency Medicine; PCP Nurse Practitioner Family
DX: N17.9 Acute kidney failure, unspecified (principal); E87.6 Hypokalemia; R53.1 Weakness; F32.A Depression, unspecified; F17.200 Nicotine dependence, unspecified, uncomplicated
CPT/HCPCS: 80053; 83735; 84100; 85025; 87177; 87507; 96361; 96374; 96375; 99285; J0131; J2405

== ENCOUNTER → 2023-02-23 11:00 | Outpatient (CLI) | payer MEDICARE, SELFPAY ==
[2023-02-23 18:04] LABS: Anion Gap 12.1 mEq/L (5-15); Blood Urea Nitrogen 40 mg/dl (7-17); Calcium 10.3 mg/dl (8.4-10.2); Carbon Dioxide 28 mmol/L (22.0-30.0); Chloride 103 mmol/L (98-107); Estimated Glomerular Filt Rate 64 ml/min (>60); GFR (African American) 77 ML/MIN (>60); Glucose 98 mg/dl (74-100); Potassium 4.1 mmoL/L (3.5-5.1); Sodium 139 mmol/L (136-145)
== END ==
PROVIDERS: PCP Nurse Practitioner Family; Visit Provider Nurse Practitioner Family
DX: E87.6 Hypokalemia (principal); N17.9 Acute kidney failure, unspecified; R34 Anuria and oliguria
CPT/HCPCS: 80048; 87086

== ENCOUNTER → 2023-03-04 16:33 | Outpatient (CLI) | payer MEDICARE, SELFPAY ==
[2023-03-04 15:27] LABS: Basophils # 0.1 K/mm3 (0-0.2); Basophils % 0.4 % (0.1-2.0); Eosinophils # 0.3 K/mm3 (0.0-0.4); Eosinophils % 2.7 % (0.1-12.0); Hematocrit 43.3 % (37.0-47.0); Hemoglobin 14.3 g/dL (12.2-16.2); Lymphocytes % 23.9 % (10-50); Mean Corpuscular HGB Conc 33.1 g/dL (31.8-35.4); Mean Corpuscular Hemoglobin 31.9 pg (27.0-31.2); Mean Corpuscular Volume 96.4 fl (81-99); Mean Platelet Volume 10.1 fl (7.4-10.4); Monocytes # 0.5 K/mm3 (0.1-1.0); Monocytes % 4.1 % (1.7-9.3); Neutrophils # 8.7 K/mm3 (1.8-7.8); Neutrophils % 68.9 % (37.0-80.0); Platelet Count 297 K/mm3 (142-424); Red Blood Count 4.49 M/mm3 (4.20-5.40); Red Cell Distribution Width 13.5 % (11.5-17.5); White Blood Count 12.6 K/mm3 (4.8-10.8)
[2023-03-04 16:04] LABS: Chloride 100 mmol/L (98-107)
[2023-03-04 16:05] LABS: Potassium 3.9 mmoL/L (3.5-5.1); Sodium 138 mmol/L (136-145)
[2023-03-04 16:07] LABS: Alanine Aminotransferase 99 U/L (12-78); Albumin Level 3.8 g/dl (3.5-5.0); Albumin/Globulin Ratio 1.3 (1.1-1.8); Alkaline Phosphatase 99 U/L (38-126); Anion Gap 13.9 mEq/L (5-15); Aspartate Amino Transferase 79 U/L (14-36); Bilirubin,Total 0.3 mg/dl (0.2-1.3); Blood Urea Nitrogen 31 mg/dl (7-17); Carbon Dioxide 28 mmol/L (22.0-30.0); Estimated Glomerular Filt Rate 64 ml/min (>60); GFR (African American) 77 ML/MIN (>60); Globulin 2.9 g/dL (1.3-3.2); Total Protein,Serum 6.7 g/dl (6.3-8.2)
[2023-03-04 16:08] LABS: Calcium 10.1 mg/dl (8.4-10.2); Glucose 107 mg/dl (74-100)
== END ==
PROVIDERS: PCP Nurse Practitioner Family; Visit Provider Nurse Practitioner Family
DX: N17.9 Acute kidney failure, unspecified (principal); R19.7 Diarrhea, unspecified
CPT/HCPCS: 80053; 85025

== ENCOUNTER → 2023-03-18 09:00 | Outpatient (CLI) | payer MEDICARE, SELFPAY ==
[2023-03-18 13:43] LABS: Basophils # 0.1 K/mm3 (0-0.2); Basophils % 0.8 % (0.1-2.0); Eosinophils # 0.4 K/mm3 (0.0-0.4); Eosinophils % 4.3 % (0.1-12.0); Hematocrit 45.6 % (37.0-47.0); Hemoglobin 14.4 g/dL (12.2-16.2); Lymphocytes # 3.1 K/mm3 (0.7-4.5); Lymphocytes % 32.4 % (10-50); Mean Corpuscular HGB Conc 31.5 g/dL (31.8-35.4); Mean Corpuscular Hemoglobin 31.3 pg (27.0-31.2); Mean Corpuscular Volume 99.3 fl (81-99); Mean Platelet Volume 10.9 fl (7.4-10.4); Monocytes # 0.6 K/mm3 (0.1-1.0); Monocytes % 5.7 % (1.7-9.3); Neutrophils # 5.5 K/mm3 (1.8-7.8); Neutrophils % 56.8 % (37.0-80.0); Platelet Count 458 K/mm3 (142-424); Red Blood Count 4.59 M/mm3 (4.20-5.40); Red Cell Distribution Width 13.7 % (11.5-17.5); White Blood Count 9.7 K/mm3 (4.8-10.8)
[2023-03-18 15:16] LABS: Alanine Aminotransferase 27 U/L (12-78); Albumin Level 4.1 g/dl (3.5-5.0); Albumin/Globulin Ratio 1.3 (1.1-1.8); Alkaline Phosphatase 59 U/L (38-126); Anion Gap 15.4 mEq/L (5-15); Aspartate Amino Transferase 29 U/L (14-36); Bilirubin,Total 0.3 mg/dl (0.2-1.3); Blood Urea Nitrogen 11 mg/dl (7-17); Calcium 9.8 mg/dl (8.4-10.2); Carbon Dioxide 25 mmol/L (22.0-30.0); Chloride 104 mmol/L (98-107); Estimated Glomerular Filt Rate 73 ml/min (>60); GFR (African American) 88 ML/MIN (>60); Globulin 3.1 g/dL (1.3-3.2); Glucose 91 mg/dl (74-100); Potassium 4.4 mmoL/L (3.5-5.1); Sodium 140 mmol/L (136-145); Total Protein,Serum 7.2 g/dl (6.3-8.2)
== END ==
PROVIDERS: PCP Nurse Practitioner Family; Visit Provider Nurse Practitioner Family
DX: B82.9 Intestinal parasitism, unspecified (principal); N17.9 Acute kidney failure, unspecified; R11.0 Nausea; R19.7 Diarrhea, unspecified
CPT/HCPCS: 80053; 85025

== ENCOUNTER → 2023-04-01 01:10 | Outpatient (CLI) | payer MEDICARE, SELFPAY ==
[2023-04-01 14:17] LABS: Adenovirus F 40/41, stool Not Detected (NotDetected); Astrovirus Not Detected (NotDetected); Campylobacter Not Detected (NotDetected); Clostridium Difficile A/B, PCR Not Detected (NotDetected); Cryptosporidium Not Detected (NotDetected); Cyclospora Cayetanesis Not Detected (NotDetected); Entamoeba histolytica Not Detected (NotDetected); Enteroaggregative E coli Not Detected (NotDetected); Enteropathogenic E coli Not Detected (NotDetected); Enterotoxigenic E coli Not Detected (NotDetected); Giardia lamblia Not Detected (NotDetected); Norovirus Not Detected (NotDetected); Plesimonas Shigalloides, PCR Not Detected (NotDetected); Rotavirus A Not Detected (NotDetected); Salmonella, PCR Not Detected (NotDetected); Sapovirus Not Detected (NotDetected); Shiga-like toxin E coli Not Detected (NotDetected); Shigella Enterovasive E coli Not Detected (NotDetected); Vibrio Cholerae Not Detected (NotDetected); Vibrio, PCR Not Detected (NotDetected); Yersinia Entercolitica, PCR Not Detected (NotDetected)
== END ==
LOC: LAB.DROPOF 04-02 14:07
PROVIDERS: PCP Nurse Practitioner Family; Visit Provider Nurse Practitioner Family
DX: B82.9 Intestinal parasitism, unspecified (principal); R19.7 Diarrhea, unspecified; R11.0 Nausea; F41.9 Anxiety disorder, unspecified
CPT/HCPCS: 87045; 87177; 87506

== ENCOUNTER 2023-07-07 08:40 | Day surgery (SDC) | payer MEDICARE, SELFPAY ==
[2023-07-07] VITALS (7 sets, daily range): BP systolic 111–146; BP diastolic 60–93; PULSE 61–85; RESP 16–19; TEMP 36.2–36.6; O2SAT 96–99; BMI 31.1
--- NOTE | 2023-07-07 10:19 | EXP.ANES.CKL ---
[facility] Disclaimer: The information contained in this section may have been updated after the patient was seen, as this information can be updated by other users. Medical History MADI (acute kidney injury) Depression Difficulty in micturition Fracture, tibia and fibula High blood cholesterol level High blood pressure Hypokalemia Surgical History S/P ORIF (open reduction internal fixation) fracture Family History Other No significant family history Social History (Updated 07/07/23 @ 09:05 by Rajan Lynch) Smoking Status: Current some day smoker alcohol intake: never substance use type: denies use current occupational status: employed and other Travel in the last 8 weeks: None household members: spouse housing: house current occupation: caregiver current occupational exposures/hazards: No caffeine: Yes [facility] Anesthesia Checklist Patient Identification Patient Identification: Arm Band, Family and Verbal (Name & ) Structural Data Admitted From: Home Planned Operative Procedure/s: Colonoscopy Consent for Planned Operative Procedure(s) Verified: Yes Verified Documents: Surgical Consent and History and Physical NPO Status Verified Time NPO: 05:00 Chart Verification Results Verified: CBC and BMP Additional verifications Patient : No Anesthesia Reactions: No Hx Blood Transfusions: No Blood Transfusion Reaction: No Cardiovascular Assessment Heart Sounds: S1 & S2 Pulse Rhythm: Irregular Peripheral Edema: Yes (2+ REGI LE) Airway Assessment Mallampati Score:: Class II C-Spine Mobility Assessed: Yes (FROM) TMJ Mobility Assessed: Yes Dentition: Partials (Upper. Nothing loose per pt.) Neurological Assessment Level of Consciousness: Awake, Alert, Appropriate and Follows Commands Hx Seizures: No Numbness or tingling in extremities: Yes (REGI LE) Anesthesia Plan Anesthesia Risk discussed: Yes Anesthesia Plan: Verified ASA Class: III Anesthesia Type: MAC
--- NOTE | 2023-07-07 10:51 | HMH.SCOPE ---
Procedure: Date: 07/07/23 Patient Date of :: 1960 Procedure Performed:: Colonoscopy Indications:: The patient is a 62 year old who presents for screening colonoscopy. The patient is adopted and does not know her family history. The patient had a diarrheal illness 5-6 months ago after drinking [place] water. The patient has had improvement in diarrhea, but still experiences episodes of urgent desire to stool with diarrhea. Performing Provider:: Kingsley Courtney MD Referring Provider:: Maxine Murphy APRN Sedation:: See RN records Procedure:: After placing the patient in the left lateral decubitus position, the colonoscopy was gently inserted into the rectum and under direct visualization advanced to the cecum which was identified by transillumination in the right lower quadrant, identification of the ileocecal valve, appendiceal orifice, and cecal strap. Color, texture, mucosa, and anatomy of the colon were carefully examined with the scope. Findings:: Anal canal: normal Rectum: Sessile polyp less than 5 mm in size. Removed with cold forceps Sigmoid colon: normal without polyps or inflammatory changes Descending colon: normal without polyps or inflammatory changes Splenic flexure: normal Transverse colon: normal without polyps or inflammatory changes Hepatic flexure: normal Ascending colon: normal without polyps or inflammatory changes Cecum: normal Terminal ileum: partially intubated, appeared normal Impression: Polyp of rectum Random colon biopsies obtained Recommendations:: Await pathology results Recommend to Align probiotic Repeat colonoscopy in 5 years Complications:: none Estimated blood obtained (mL): 0 Colonoscopy Component Colonoscopy Component Was a colonoscopy performed during today's procedure?: Yes Recommended follow up colonoscopy of at least 10 years?: Yes
--- NOTE | 2023-07-07 10:54 | P.PNANES_ITS ---
[facility] Anesthesia Record Part I Anesthesia Record I Intake, IV Amount: 800 Hydration: Adequate Estimated blood loss (mL): 1 Urine output (mL): 0 Blood Products used (#): none Blood Pressure: 111/60 SaO2: 98 Pulse Rate: 75 Airway Patency: Patent Respiratory Rate: 18 Temperature: 97.1 F Patient is:: Awake (Talking) and Stable Stable to PACU at:: 10:53
== END 2023-07-07 11:40 | disposition home or self-care (01) ==
PROVIDERS: PCP Nurse Practitioner Family; Visit Provider Internal Medicine
PROC: (CPT 45380; principal; 2023-07-07 10:00)
DX: R19.7 Diarrhea, unspecified (principal); K62.1 Rectal polyp
CPT/HCPCS: 45380; 88305

== ENCOUNTER 2023-07-09 16:46 | Outpatient (CLI) | payer MEDICARE, SELFPAY ==
[2023-07-09 17:49] LABS: Amphetamine/Metha Screen,Urine Negative ng/ml (<1000); Barbiturates Screen,Urine Negative ng/ml (<200)
[2023-07-09 17:50] LABS: Benzodiazepines Screen,Urine Negative ng/ml (<200)
[2023-07-09 17:51] LABS: Cannabinoid Screen,Urine Negative ng/ml (<50); Cocaine Screen,Urine Negative ng/ml (<300)
[2023-07-09 17:52] LABS: Methadone Screen,Urine Negative ng/ml (<300); Opiate Screen,Urine Negative ng/ml (<300)
[2023-07-09 17:53] LABS: Phencyclidine Screen,Urine Negative ng/ml (<25)
== END 2023-07-09 23:59 ==
LOC: LAB.DROPOF 16:46
PROVIDERS: PCP Nurse Practitioner Family; Visit Provider Nurse Practitioner Family
DX: Z79.899 Other long term (current) drug therapy (principal)
CPT/HCPCS: 80307

== ENCOUNTER 2023-08-16 11:16 | Emergency (ER) | payer MEDICARE, SELFPAY ==
[2023-08-16 11:18] VITALS: BP 132/83; PULSE 77; RESP 16; TEMP 36.8; O2SAT 99; BMI 30.9
--- NOTE | 2023-08-16 11:55 | XR_ITS ---
FINAL REPORT CLINICAL HISTORY: Right foot pain/swelling COMPARISON: None FINDINGS: RIGHT FOOT 3 views of the right foot were obtained. An IM massimo is present in the distal tibia. There is no acute fracture or dislocation. Visualized joint spaces are normally aligned. There is a large plantar spur. There is mild soft tissue swelling over the dorsum of the foot. IMPRESSION: Mild soft tissue swelling without acute bony abnormality. Reviewed, Interpreted and Dictated by González Luna MD Transcribed by Sadie Ferreira Authenticated and [facility]
--- NOTE | 2023-08-16 11:55 | HMH.EDGENADL ---
Discharge Plan Disposition Patient Disposition: Home, Self-Care Condition: Good Prescriptions Prescriptions: New ketorolac 10 mg tablet 10 mg PO Q8H PRN (Reason: pain) 4 Days Qty: 12 0RF lidocaine 5 % adhesive patch,medicated 1 patch topical DAILY Qty: 15 0RF Rx Instructions: leave on most painful area for up to 12 hrs cephalexin 500 mg capsule 500 mg PO BID 7 Days Qty: 14 0RF No Action pravastatin 10 mg tablet 10 mg PO DAILY 90 Days Qty: 90 1RF sertraline 100 mg tablet 100 mg PO DAILY Qty: 90 1RF tramadol 50 mg tablet 50 mg PO Q6H PRN (Reason: Pain) 30 Days Qty: 120 2RF fenofibrate 160 mg tablet 160 mg PO DAILY lisinopril-hydrochlorothiazide 20-25 mg tablet 1 tab PO DAILY Referrals Follow up/Referrals: Katty Delatorre APRN [Primary Care Provider] - See instructions Activity Restrictions/Add. Instructions Additional Instructions/Restrictions: You have been evaluated in the ED for your complaints. You may follow-up with your PCP in the next 3 to 5 days. Please return to ED for any new or worsening symptoms. I have written for prescription for Toradol to further assist with your pain and inflammation. Please use this as needed. I will also provided you with prescriptions for lidocaine patches. I have written for Keflex to treat your skin infection. Please take this as prescribed over the next 7 days. If you experience any new or worsening symptoms please return to ED for further evaluation. Clinical Impressions Clinical Impression: Foot pain, right, Swelling of toe of right foot, Cellulitis of great toe, right Instructions Patient Instructions: Cellulitis Discharge ED Provider: Michael Ramos General Adult HPI General Chief complaint: Extremity Injury, Lower Stated complaint: pain in Rt foot, no accident Time Seen by Provider: 08/16/23 11:44 Mode of Arrival: Wheelchair Source of Information: Patient Limitations: No Limitations Description of Symptoms (Recalled from ER Triage Doc. by RN): Pt c/o right foot pain. She denies recent injury but has hx injury to right foot w/ massimo placement. She reports using a foot massager wednesday and has had swelling and redness to right foot since. She reports throbbing pain and inability to bear weight without significant pain. History of Present Illness HPI narrative: 62-year-old female with past medical history significant for hypertension, complex regional pain syndrome, anxiety, depression, HLD, presents today for evaluation concerning right foot pain since Wednesday after using a medical grade foot massager. States that she noted pain and swelling about an hour after using a foot massager. Has had difficulty with ambulation secondary to her pain. Denies having any fevers, chills, chest pain, shortness of breath or any other pain in any other extremities. She states that she has been taking tramadol with minimal relief. No further complaints. Related Data Home Medications Medication Instructions Recorded Confirmed fenofibrate 160 mg tablet 160 mg PO DAILY Supplement 02/22/23 07/09/23 lisinopril 20 1 tab PO DAILY High Blood Pressure 02/23/23 07/09/23 mg-hydrochlorothiazide 25 mg tablet Previous Rx's Medication Instructions Recorded pravastatin 10 mg tablet 10 mg PO DAILY High Cholesterol 90 07/09/23 days #90 tabs sertraline 100 mg tablet 100 mg PO DAILY #90 tabs 07/09/23 tramadol 50 mg tablet 50 mg PO Q6H PRN Pain 30 days #120 07/09/23 tabs cephalexin 500 mg capsule 500 mg PO BID 7 days #14 caps 08/16/23 ketorolac 10 mg tablet 10 mg PO Q8H PRN pain 4 days #12 08/16/23 tabs lidocaine 5 % topical patch 1 patch topical DAILY #15 ea 08/16/23 Allergies Allergy/AdvReac Type Severity Reaction Status Date / Time No Known Allergies Allergy Verified 07/09/23 15:46 [facility] Disclaimer: The information contained in this section may have been updated after the patient was seen, as this information can be updated by other users. Medical History (Updated 08/16/23 @ 14:45 by Michael Ramos DO) MADI (acute kidney injury) Depression Difficulty in micturition Fracture, tibia and fibula High blood cholesterol level High blood pressure Hypokalemia Surgical History (Updated 07/09/23 @ 15:52 by Analia Aquino CMA) History of colonoscopy S/P ORIF (open reduction internal fixation) fracture Family History Other No significant family history Social History Smoking Status: Current some day smoker alcohol intake: never substance use type: denies use current occupational status: employed and other Travel in the last 8 weeks: None household members: spouse housing: house current occupation: caregiver current occupational exposures/hazards: No caffeine: Yes ROS Obtained: Yes All systems reviewed & no additional complaints except as documented Physical Exam General General appearance: alert and in no apparent distress Head Head exam: atraumatic and normocephalic Eye Eye exam: Present normal appearance, PERRL and EOMI ENT ENT exam: Present normal oropharynx and mucous membranes moist Neck Neck exam: Present full ROM; Absent meningismus Respiratory Respiratory exam: Absent respiratory distress, wheezes, stridor or accessory muscle use Cardiovascular Cardiovascular exam: Present normal rhythm Abdominal Exam Abdominal exam: Present soft; Absent distention, tenderness, guarding, rebound or rigidity Extremities Exam Extremities exam: Present tenderness, normal capillary refill and other (Tenderness to palpation over the right great toe as well as the second second toe with overlying erythema and swelling of the great toe. Decreased range of motion secondary to pain. Palpable DP pulses.) Neurological Exam Neurological exam: Present alert, oriented X3 and CN II-XII intact; Absent motor sensory deficit Psychiatric Psychiatric exam: Present normal affect and normal mood Skin Skin exam: Present warm and dry Medical Decision Making Medical Records Medical records reviewed: Yes I reviewed the patient's medical records. Yon Inquiry Pt receiving controlled substance: No Yon was queried for this patient: No Vital Signs: 08/16/23 11:18 08/16/23 12:53 Temperature 98.2 F Temperature Source Oral Pulse Rate 75 Pulse Rate [Right Radial] 77 Respiratory Rate 16 Blood Pressure 140/78 Blood Pressure [Left Arm] 132/83 Blood Pressure Mean [Left Arm] 99 Blood Pressure Source [Left Arm] Automatic Cuff Blood Pressure Position [Left Arm] Sitting 02 Sat by Pulse Oximetry 99 99 Oxygen Delivery Method Room Air Room Air Lab Data Lab Results 08/16/23 12:13: WBC 13.9 H, RBC 4.87, Hgb 16.2, Hct 47.3 H, MCV 97.0, MCH 33.3 H, MCHC 34.4, RDW 13.6, Plt Count 246, MPV 9.4, Neut % (Auto) 78.8, Lymph % (Auto) 14.3, [place] % (Auto) 4.4, Eos % (Auto) 2.1, Baso % (Auto) 0.4, Neut # (Auto) 11.0 H, Lymph # (Auto) 2.0, [place] # (Auto) 0.6, Eos # (Auto) 0.3, Baso # (Auto) 0.1 08/16/23 12:26: Sodium 135 L, Potassium 4.0, Chloride 100, Carbon Dioxide 36 H, Anion Gap 3.0 L, BUN 15, Creatinine 0.80, Estimated Creat Clear 74, Estimated GFR 73, Est GFR ( Amer) 88, Glucose 103 H, Calcium 9.6, C-Reactive Protein 54.9 H 08/16/23 12:13 08/16/23 12:26 Orders (Tests/Meds): ED MEDICATIONS Discontinued Medications Generic Name Dose Route Start Last Admin Trade Name Pranavq PRN Reason Stop Dose Admin Acetaminophen 1,000 mg 08/16/23 12:00 08/16/23 12:03 Acetaminophen 500mg Tab PO 08/16/23 12:01 1,000 mg ONCE ONE Administration Ketorolac Tromethamine 15 mg 08/16/23 11:59 08/16/23 12:03 Ketorolac 30mg/Ml Vial IV 08/16/23 12:00 15 mg ONCE ONE Administration Lidocaine 1 each 08/16/23 14:12 08/16/23 14:14 Lidocaine 5% Transdermal Patch TP 08/16/23 14:13 1 each ONCE ONE Administration ORDERS Category Date Time Status Foot XR right minimum 3 views [XR foot RT min 3V] Stat Exams 08/16/23 11:55 Taken BMP [Basic Metabolic Panel] Stat Lab 08/16/23 12:26 Completed CBC w/Auto Diff [Complete Blood Count Auto Diff] Stat Lab 08/16/23 12:13 Completed CRP [C-Reactive Protein] Stat Lab 08/16/23 12:26 Completed Medical Decision Narrative: 62-year-old female with past medical history significant for hypertension, complex regional pain syndrome, anxiety, depression, HLD, presents today for evaluation concerning right foot pain since Wednesday after using a medical grade foot massager. States that she noted pain and swelling about an hour after using a foot massager. Has had difficulty with ambulation secondary to her pain. On assessment, the patient was hemodynamically stable and in no acute distress. Afebrile. Physical exam was remarkable for tenderness to palpation as well as swelling with associated erythema of the right great toe. There is also tenderness to palpation of the second toe. Decreased range of motion secondary to pain. Palpable DP pulses. Differential diagnoses include but not limited to fracture, dislocation, gout, musculoskeletal pain, cellulitis, among others. Lab workup today has been remarkable for a WBC of 13.9. Sodium 135, carbon dioxide of 36, anion gap of 3. CRP of 54.9. X-ray imaging of the right foot was ordered and informally interpreted by me and was remarkable for soft tissue swelling without any acute bony abnormalities. Radiology read confirmed. On reassessment patient remains medically stable and in no acute distress. Pain has been somewhat improved. I discussed her ED workup and results and current plan. Provided patient with a boot and she was able to ambulate with better comfort. Also discussed that I will provide her with a prescription for Keflex to treat her cellulitis and also instructed her concerning pain control. She verbalized understanding and agreement with plan. Provided with return ED cautions and instructions concerning PCP follow-up. She was subsequently discharged home in medically stable and in no acute distress. She was subsequently discharged home hemodynamically stable and in no acute distress. Critical Care Critical Care Time Critical Care Time: No
[2023-08-16] MEDS: ACETAMINOPHEN 500MG TAB 1000 MG PO (12:03)
[2023-08-16] MEDS: KETOROLAC 30MG/ML VIAL 15 MG IV (12:03)
--- NOTE | 2023-08-16 12:20 | HMH.ITSTN ---
nurse using ultrasound for IV. patient not ready for foot xray
[2023-08-16 12:23] LABS: Basophils # 0.1 K/mm3 (0-0.2); Basophils % 0.4 % (0.1-2.0); Eosinophils # 0.3 K/mm3 (0.0-0.4); Eosinophils % 2.1 % (0.1-12.0); Hematocrit 47.3 % (37.0-47.0); Hemoglobin 16.2 g/dL (12.2-16.2); Lymphocytes % 14.3 % (10-50); Mean Corpuscular HGB Conc 34.4 g/dL (31.8-35.4); Mean Corpuscular Hemoglobin 33.3 pg (27.0-31.2); Mean Platelet Volume 9.4 fl (7.4-10.4); Monocytes # 0.6 K/mm3 (0.1-1.0); Monocytes % 4.4 % (1.7-9.3); Neutrophils % 78.8 % (37.0-80.0); Platelet Count 246 K/mm3 (142-424); Red Blood Count 4.87 M/mm3 (4.20-5.40); Red Cell Distribution Width 13.6 % (11.5-17.5); White Blood Count 13.9 K/mm3 (4.8-10.8)
--- NOTE | 2023-08-16 12:31 | PC.NURSE ---
Pt returned from RAD
[2023-08-16 12:51] LABS: Chloride 100 mmol/L (98-107); Sodium 135 mmol/L (136-145)
[2023-08-16 12:53] VITALS: BP 140/78; PULSE 75; O2SAT 99
[2023-08-16 12:54] LABS: Blood Urea Nitrogen 15 mg/dl (7-17); Calcium 9.6 mg/dl (8.4-10.2); Carbon Dioxide 36 mmol/L (22.0-30.0); Creatinine Clearance Estimated 74 mL/min (50-200); Estimated Glomerular Filt Rate 73 ml/min (>60); GFR (African American) 88 ML/MIN (>60); Glucose 103 mg/dl (74-100)
--- NOTE | 2023-08-16 12:56 | PC.NURSE ---
Rounded on pt. Pt provided with crackers and water. No other needs voiced at this time.
[2023-08-16 13:00] LABS: C-Reactive Protein 54.9 mg/L (0-4)
--- NOTE | 2023-08-16 13:50 | PC.NURSE ---
SPOKE WITH YUMI IN RADIOLOGY TO CHECK STATUS OF XR READ
--- NOTE | 2023-08-16 14:08 | PC.NURSE ---
DR WELLS AT BEDSIDE TO REEVALUATE PT
[2023-08-16] MEDS: LIDOCAINE 5% TRANSDERMAL PATCH 1 EACH TP (14:14)
[2023-08-16 14:55] VITALS: BP 131/80; PULSE 66; RESP 18; TEMP 36.7; O2SAT 99
--- NOTE | 2023-08-16 16:31 | PC.NURSE ---
Patient called yelling at this nurse requesting another work note to be faxed. Stated that a new note could be printed but someone would have to pick it up. Son in background yelling. Note left at registration. Patient educated that if she needed a longer note than what was given that she would need to follow back up with her primary care physician for return to work note.
--- NOTE | 2023-08-21 22:33 | PC.NURSE ---
chart accessed for ortho paperwork
== END 2023-08-16 14:55 | disposition home or self-care (01) ==
PROVIDERS: Emergency Provider Emergency Medicine; PCP Nurse Practitioner Family
DX: L03.115 Cellulitis of right lower limb (principal); M79.671 Pain in right foot; I10 Essential (primary) hypertension; G90.50 Complex regional pain syndrome I, unspecified; E78.5 Hyperlipidemia, unspecified; F17.200 Nicotine dependence, unspecified, uncomplicated
CPT/HCPCS: 73630; 80048; 85025; 86140; 96374; 99285

== ENCOUNTER 2023-11-01 15:52 | Outpatient (CLI) | payer MEDICARE, SELFPAY ==
--- NOTE | 2023-11-01 15:53 | MM_ITS ---
PROCEDURE INFORMATION: Exam: MG Bilateral Screening 3D Mammography Exam date and time: 11/01/2023 3:52 PM Age: 63 years old Clinical indication: Screening. No family history of breast cancer. TECHNIQUE: Imaging protocol: Bilateral Screening tomosynthesis and 2D mammography including computer-aided detection (CAD) when performed. COMPARISON: No relevant prior studies available.If prior mammograms are provided, I am happy to add an addendum. FINDINGS: MAMMOGRAPHY: Breast composition: There are scattered areas of fibroglandular density. Mass: No suspicious mass. Architectural distortion: None. Calcifications: No suspicious calcifications. Asymmetric density: None. Skin thickening: None. Axillary adenopathy: None. IMPRESSION: No mammographic evidence of malignancy. Annual screening is recommended unless otherwise clinically indicated. ASSESSMENT: BI-RADS Category 1: Negative
== END 2023-11-01 23:59 | disposition home or self-care (01) ==
LOC: RAD 15:53
PROVIDERS: PCP Nurse Practitioner Family; Visit Provider Nurse Practitioner Family
DX: Z12.31 Encounter for screening mammogram for malignant neoplasm of breast (principal)
CPT/HCPCS: 77063; 77067

== ENCOUNTER 2024-04-17 15:38 | Outpatient (CLI) | payer MEDICARE, SELFPAY ==
[2024-04-17 16:21] LABS: Microscopic, Urine URINE MICROSCOPIC (MICROSCOPIC)
[2024-04-17 16:53] LABS: Hemoglobin A1C 5.4 % (4.0-6.0)
[2024-04-17 16:55] LABS: Appearance,Urine CLEAR (Clear); Bilirubin,Urine Negative (Negative); Blood, Urine TRACE-I (Negative); Color,Urine YELLOW (Yellow); Glucose,Urine (UA) Negative (Negative); Ketones,Urine Negative (Negative); Leukocyte Esterase,Urine Negative (Negative); Nitrate,Urine Negative (Negative); PH,Urine 5.5 (5.0-8.5); Protein,Urine Negative (Negative); Specific Gravity, Urine 1.025 (1.005-1.030); Urobilinogen,Urine 0.2 EU/dl (0.2)
[2024-04-17 17:08] LABS: Erythrocyte Sedimentation Rate 13 mm/hr (0-30)
[2024-04-17 17:12] LABS: Free T4 (Free Thyroxine) 0.75 ng/dl (0.78-2.19)
[2024-04-17 17:14] LABS: 25-OH Vitamin D, Total 27.7 ng/mL (30-100)
[2024-04-17 17:18] LABS: Basophils # 0.1 K/mm3 (0-0.2); Basophils % 1.1 % (0.1-2.0); Eosinophils # 0.3 K/mm3 (0.0-0.4); Hematocrit 43.2 % (37.0-47.0); Hemoglobin 14.6 g/dL (12.2-16.2); Lymphocytes # 3.7 K/mm3 (0.7-4.5); Lymphocytes % 36.8 % (10-50); Mean Corpuscular HGB Conc 33.7 g/dL (31.8-35.4); Mean Corpuscular Hemoglobin 31.9 pg (27.0-31.2); Mean Corpuscular Volume 94.7 fl (81-99); Mean Platelet Volume 8.2 fl (7.4-10.4); Monocytes # 0.4 K/mm3 (0.1-1.0); Neutrophils # 5.6 K/mm3 (1.8-7.8); Neutrophils % 55.1 % (37.0-80.0); Platelet Count 215 K/mm3 (142-424); Red Blood Count 4.56 M/mm3 (4.20-5.40); Red Cell Distribution Width 13.5 % (11.5-17.5); White Blood Count 10.1 K/mm3 (4.8-10.8)
[2024-04-17 17:37] LABS: Bacteria,Urine 1+ /lpf; RBC,Urine Occasional #/hpf (0-3); Squamous Epithelial Cell,Urine Occasional #/hpf (0-5); WBC,Urine Occasional #/hpf (0-3)
[2024-04-17 19:08] LABS: HIV (1&2) Antibody Rapid NONREACTIVE (NONREACTIVE)
[2024-04-17 22:41] LABS: Alanine Aminotransferase 28 U/L (12-78); Albumin Level 4.5 g/dl (3.5-5.0); Albumin/Globulin Ratio 1.6 (1.1-1.8); Alkaline Phosphatase 66 U/L (38-126); Anion Gap 6.6 mEq/L (5-15); Aspartate Amino Transferase 32 U/L (14-36); Bilirubin,Total 0.7 mg/dl (0.2-1.3); Blood Urea Nitrogen 17 mg/dl (7-17); Calcium 10.3 mg/dl (8.4-10.2); Carbon Dioxide 25 mmol/L (22.0-30.0); Chloride 109 mmol/L (98-107); Estimated Glomerular Filt Rate 85 ml/min (>60); GFR (African American) 103 ML/MIN (>60); Globulin 2.8 g/dL (1.3-3.2); Glucose 107 mg/dl (74-100); HDL Cholesterol 80 mg/dl (40-60); Iron 141 ug/dL (37-170); Potassium 3.6 mmoL/L (3.5-5.1); Sodium 137 mmol/L (136-145); Total Protein,Serum 7.3 g/dl (6.3-8.2); Triglycerides 390 mg/dl (30-150); VLDL Cholesterol 78 mg/dL (0-40)
[2024-04-17 22:51] LABS: Chol/HDL Ratio 4.1 (1-3.5); Cholesterol 329 mg/dl (140-200)
[2024-04-17 22:52] LABS: C-Reactive Protein 2.3 mg/L (0-4); Direct LDL Cholesterol 169.56 mg/dL (100-129)
[2024-04-17 23:11] LABS: Thyroid Stimulating Hormone 4.76 uIU/mL (0.465-4.68)
[2024-04-17 23:15] LABS: Total Iron Binding Capacity 334 ug/dL (265-497)
[2024-04-17 23:30] LABS: Vitamin B12 689 pg/mL (239-931)
[2024-04-17 23:42] LABS: Ferritin 264 ng/ml (11.1-264)
[2024-04-19 21:17] LABS: HCV Ab Reactive (Non Reactive)
== END 2024-04-17 23:59 | disposition home or self-care (01) ==
LOC: LAB 15:40
PROVIDERS: PCP Nurse Practitioner Family; Visit Provider Nurse Practitioner Family
DX: E78.5 Hyperlipidemia, unspecified (principal); Z11.59 Encounter for screening for other viral diseases; R10.9 Unspecified abdominal pain; Z68.32 Body mass index [BMI] 32.0-32.9, adult; D64.9 Anemia, unspecified; Z11.4 Encounter for screening for human immunodeficiency virus [HIV]; Z13.1 Encounter for screening for diabetes mellitus; R53.83 Other fatigue; I10 Essential (primary) hypertension
CPT/HCPCS: 36415; 80053; 80061; 81001; 82306; 82607; 82728; 83036; 83540; 83550; 84156; 84439; 84443; 85025; 85651; 86140; 86803; 87086; 87389

== ENCOUNTER 2024-11-08 12:13 | Outpatient (CLI) | payer MEDICARE, SELFPAY ==
[2024-11-08 13:35] LABS: Free T4 (Free Thyroxine) 0.76 ng/dl (0.78-2.19)
[2024-11-08 13:36] LABS: 25-OH Vitamin D, Total 33.9 ng/mL (30-100)
[2024-11-08 13:37] LABS: T4 (Thyroxine) 5.3 ug/dl (5.53-11.0)
[2024-11-08 13:51] LABS: Thyroid Stimulating Hormone 2.02 uIU/mL (0.465-4.68)
[2024-11-09 09:02] LABS: Triiodothyronine (T3) Free 2.7 pg/mL (2.0-4.4)
== END 2024-11-08 23:59 | disposition home or self-care (01) ==
LOC: LAB.DROPOF 11-10 12:15
PROVIDERS: PCP Nurse Practitioner Family; Visit Provider Nurse Practitioner Family
DX: E03.9 Hypothyroidism, unspecified (principal); E55.9 Vitamin D deficiency, unspecified
CPT/HCPCS: 82306; 84436; 84439; 84443; 84481

== ENCOUNTER 2024-11-15 10:59 | Outpatient (POV) | payer MEDICARE, SELFPAY ==
[2024-11-15 11:19] VITALS: BP 164/83; PULSE 66; RESP 18; O2SAT 98; BMI 31.3
--- NOTE | 2024-11-15 12:07 | A.OFFVIS_ITS ---
HPI Data of Consult Patient: new to practice Consult date: 11/15/24 Requesting Physician: Paige Carbajal APRN Primary Care Provider: Katty Delatorre APRN Reason for consult: Bilateral feet/ankle pain History of present illness: Ms. Maria is a 64 year old female who presents today as a new patient. She is a referral from Maxine Murphy's office. She does state that she has been seen by our office in the past around 2020. Patient does state that this was all for the same pain related to bilateral feet problems. Patient states she has had this for years and progressively worsening. Patient does state initially she does believe a lot of the right side is related to a compound fracture of her right lower leg where they did place a steel massimo. She states at that time of surgery they never did physical therapy and she had healing issues. Patient then continued to have pain in this area and feels like her altered gait may have worsened issues on the left side. Patient has tried oral medication, heat and ice and topicals with minimal relief. Patient does state the pain is interfering with her ability perform activities of daily living such as cooking and cleaning. Patient has a lot of difficulty walking even and feels like she is going to fall due to her altered gait. Patient does state that she has actually fallen in the past because she feels like she cannot move her feet the way she supposed to. She has very limited range of motion. Patient has had physical therapy with no overall change. Patient has also been put on Mobic in the past however did not really notice significant relief. Patient denies any heart issues but does state that in the past she did have some altered kidney function last year but feels like it has resolved. Patient was tried with lumbar epidural injections from our office and the first 1 was the only one that initially gave significant relief however only lasted about 10 days. Patient is interested in any options we may be able to try. Her Yon has been reviewed and is appropriate. She is currently prescribed tramadol from an outside provider. Pain at rest (0-10 scale): 5 Has patient had previous pain injection?: No Conservative treatment options previously tried: Home exercise plan (Longer than 12 weeks) and Physical Therapy (Previous with no improvement) cc:: CC: Paige Carbajal APRN [facility] Disclaimer: The information contained in this section may have been updated after the patient was seen, as this information can be updated by other users. Medical History Bilateral foot pain Routine lab draw Right sided abdominal pain Screening for HIV (human immunodeficiency virus) Conjunctivitis Encounter for hepatitis C screening test for low risk patient Parasites in stool Nausea Diarrhea Upper respiratory infection Foot pain, right Swelling of toe of right foot (~11/04/23) Cellulitis of great toe, right Right anterior knee pain Left knee pain Difficulty in micturition Hypokalemia MADI (acute kidney injury) Fracture, tibia and fibula RLE Depression High blood pressure High blood cholesterol level Surgical History History of colonoscopy S/P ORIF (open reduction internal fixation) fracture right tibia, fibula Family History Other No significant family history Social History (Updated 11/15/24 @ 11:22 by Adrienne Magaña RN) Smoking Status: Current some day smoker alcohol intake: never substance use type: denies use current occupational status: employed Travel in the last 8 weeks?: None household members: spouse housing: house current occupation: caregiver current occupational exposures/hazards: No caffeine: Yes Review of Systems Review of Systems Review of systems:: pertinent systems reviewed and negative unless documented below Review of systems (narrative): Review of Systems: General: No recent weight changes, no fever, no sleep disturbances Respiratory: No cough, no shortness of air, no recurring pulmonary infections Cardiovascular/peripheral vascular: No chest pain, no palpitations, no edema, no shortness of breath Gastrointestinal: No new onset incontinence, normal bowel movements reported Genitourinary: No new onset incontinence Musculoskeletal: Bilateral feet pain, lower ponce pain Psychiatric: [Normal mood/affect] Neurological: [Denies weakness in extremities], [denies balance issues] Meds Home Medications and Allergies Home Medications ?Medication ?Instructions ?Recorded ?Confirmed ?Type levothyroxine 25 mcg tablet 25 mcg PO DAILY #90 tabs 04/18/24 11/15/24 Rx rosuvastatin 40 mg tablet (Crestor) 40 mg PO DAILY #90 tabs 04/18/24 11/15/24 Rx buspirone 7.5 mg tablet 7.5 mg PO BID #60 tabs 10/19/24 11/15/24 Rx fenofibrate 160 mg tablet 160 mg PO DAILY Supplement #90 tabs 10/19/24 11/15/24 Rx sertraline 100 mg tablet 100 mg PO DAILY #90 tabs 10/24/24 11/15/24 Rx lisinopril 20 1 tab PO BID #60 tabs 11/08/24 11/15/24 Rx mg-hydrochlorothiazide 25 mg tablet tramadol 50 mg tablet 50 mg PO Q6H PRN Pain 30 days #120 11/08/24 11/15/24 Rx tabs New Prescriptions to Start Prescriptions: Allergies Allergy/AdvReac Type Severity Reaction Status Date / Time No Known Allergies Allergy Verified 11/08/24 09:13 Objective Vital signs: Pulse Resp BP Pulse Ox O2 Del Method 66 18 164/83 H 98 Room Air 11/15/24 11:19 11/15/24 11:19 11/15/24 11:19 11/15/24 11:19 11/15/24 11:19 Narrative: Physical Exam: General: Alert and oriented x3, no acute distress, pleasant and cooperative Lungs: Respirations even and unlabored, symmetrical chest expansion Eyes: PERRL Musculoskeletal: Flexion and extension of bilateral ankles somewhat guarded secondary to pain, [antalgic gait noted] Neurological: Speech clear, no gross sensory deficit Assessment and Plan *Assessment and plan (1) Bilateral foot pain: Status: Acute Category: Medical Code(s): M79.671 - Pain in right foot; M79.672 - Pain in left foot (2) CRPS (complex regional pain syndrome type I): Status: Chronic Qualifiers: Complex regional pain syndrome affected site: lower extremity Laterality: bilateral Qualified Code(s): G90.523 - Complex regional pain syndrome I of lower limb, bilateral Category: Medical Code(s): G90.50 - Complex regional pain syndrome I, unspecified Plan Patient is experiencing significant pain in her bilateral feet with limited range of motion. Patient did describe her pain where it radiates over the top of both of her feet. I did discuss with her due to how her symptoms do radiate that I do believe she would be a beneficial candidate of a superficial peroneal nerve block. Risk and benefits were discussed with the patient and she would like to proceed forward with this plan of care. Patient has had bilateral ankle and foot pain for longer than 2 years and has tried and failed conservative therapy including oral medication, heat and ice, topicals, at home stretching exercise for longer than 12 weeks that was physician guided. Patient did complete physical therapy however noticed no additional improvement. I did also discuss with patient in future she may benefit from a spinal cord stimulator trial. We will follow-up with this at later visits. I will order the patient a compounded cream. Patient's GFR was within normal range on her last labs. I will send in a 2-week dose of diclofenac 50 mg twice daily. Patient was counseled to discontinue all other NSAIDs while taking this medication and to take it with food to minimize GI upset. Patient will be scheduled for bilateral superficial peroneal nerve blocks. This will be done without fluoroscopic or ultrasound guidance. Patient has been instructed to contact the clinic with any concerns before the next appointment. Dr. Lyle has reviewed this note and agrees with this plan of care. This note was dictated using voice recognition software and make contain errors or omissions. All injections are used with Lidocaine, Bupivacaine and dexamethasone. Occasionally urine drug screen is needed to verify patient's compliance with our office pain contract. This is ordered based off specific treatments related to chronic pain with the potential to abuse certain medications.
== END 2024-11-15 23:59 | disposition home or self-care (01) ==
PROVIDERS: PCP Nurse Practitioner Family; Visit Provider Nurse Practitioner Family
DX: M79.671 Pain in right foot (principal); M79.672 Pain in left foot; G90.523 Complex regional pain syndrome I of lower limb, bilateral; Z73.89 Other problems related to life management difficulty
CPT/HCPCS: 99202; G0463

== ENCOUNTER 2024-12-19 14:32 | Day surgery (SDC) | payer MEDICARE, SELFPAY ==
[2024-12-19 14:42] VITALS: BP 167/98; PULSE 71; RESP 18; O2SAT 98; BMI 30.1
[2024-12-19] MEDS: BUPIVACAINE 0.25% 10ML INJ 25 MG IJ (15:10)
[2024-12-19] MEDS: LIDOCAINE 1% 5ML PF VIAL 5 ML (15:10)
[2024-12-19] MEDS: DEXAMETHASONE 10MG/ML 1ML VIAL 10 MG (15:10)
[2024-12-19 15:11] VITALS: BP 158/96; PULSE 82; RESP 18; O2SAT 98
[2024-12-19 15:12] VITALS: BP 158/96; PULSE 83; RESP 18; O2SAT 98
--- NOTE | 2024-12-19 15:15 | EXP.PAIN.PRO ---
Procedure Date: 12/19/24 Time: 15:00 Anesthesiologist:: Marshal Asencio CRNA Complications:: None Pre-procedure Diagnosis:: DJD bilateral foot. Chronic foot pain Post-procedure Diagnosis:: Same. Indications for Procedure:: Patient is a pleasant 64-year-old female comes our clinic today for bilateral superficial peroneal nerve block. Patient reports bilateral foot pain that is constant, dull, aching. She reports having difficulty with ambulation. I discussed in detail with the patient regarding her bilateral foot pain. If this intervention is not successful? I discussed with her regarding bilateral tarsometatarsal joint injections. Procedure Details:: Details of the procedure explained to the patient. The patient taken procedure room placed in the sitting position. The area over the dorsal foot was cleaned using chlorhexidine as a cleansing solution. Using a 25-gauge inch and half needle the right superficial peroneal nerve was accessed with ease. After negative aspiration 2 cc of 1% lidocaine +2 cc of 0.25% Marcaine and 5 mg of dexamethasone was injected. The same procedure was carried out on the left superficial peroneal nerve. Patient tolerated procedure without difficulty. There are no complications. Plan and Disposition:: Patient was discharged without incident.
[2024-12-19 15:23] VITALS: BP 154/82; PULSE 71; RESP 18; O2SAT 100
== END 2024-12-19 15:23 | disposition home or self-care (01) ==
PROVIDERS: PCP Nurse Practitioner Family; Visit Provider Nurse Anesthetist, Certified Registered
DX: M19.072 Primary osteoarthritis, left ankle and foot (principal); M19.071 Primary osteoarthritis, right ankle and foot; F32.A Depression, unspecified; E78.00 Pure hypercholesterolemia, unspecified; I10 Essential (primary) hypertension; F17.200 Nicotine dependence, unspecified, uncomplicated; Z79.890 Hormone replacement therapy; Z79.899 Other long term (current) drug therapy
CPT/HCPCS: 64450; J0665; J1100; J2003

== ENCOUNTER 2025-04-24 10:06 | Day surgery (SDC) | payer MEDICARE, SELFPAY ==
[2025-04-24 10:22] VITALS: BP 157/90; PULSE 67; RESP 18; O2SAT 99; BMI 31.3
[2025-04-24] MEDS: BUPIVACAINE 0.25% 10ML INJ 25 MG IJ (10:38)
[2025-04-24] MEDS: LIDOCAINE 1% 5ML PF VIAL 5 ML (10:39)
[2025-04-24] MEDS: DEXAMETHASONE 10MG/ML 1ML VIAL 10 MG (10:39)
--- NOTE | 2025-04-24 10:44 | EXP.PAIN.PRO ---
Procedure Date: 04/24/25 Time: 10:35 Anesthesiologist:: Riky Asencio CRNA Complications:: None Pre-procedure Diagnosis:: Chronic foot pain Post-procedure Diagnosis:: Same Indications for Procedure:: Patient is a pleasant 64-year-old female who comes to clinic today for bilateral superficial peroneal nerve block. Patient describes bilateral foot pain as constant, dull, aching. She reports difficulty with ambulation due to bilateral foot pain. She has difficulty with stairs due to bilateral foot pain. She rates her pain 7/10. We discussed in detail bilateral tarsometatarsal joint injections of cortisone and local anesthetic in the future if necessary. Procedure Details:: Details of the procedure explained to the patient. The patient taken procedure room placed on the fluoroscopy table. The right foot was placed flat on the fluoroscopy table. Using a 25-gauge inch and half needle the superficial peroneal nerve was accessed with ease just lateral to the extensor hallux is longus. After negative aspiration 2 cc 1% lidocaine +2 cc of 0.25% Marcaine and 5 mg of Depo-Medrol was injected. The same procedure was carried out over the left foot. Patient tolerated procedure without difficulty. There were no complications. Plan and Disposition:: Patient was discharged without incident.
[2025-04-24 10:45] VITALS: BP 146/60; PULSE 70; RESP 16; O2SAT 98
[2025-04-24 10:48] VITALS: BP 157/102; PULSE 71; RESP 18; O2SAT 99
[2025-04-24 10:50] VITALS: BP 157/102; PULSE 71; RESP 18; O2SAT 99
== END 2025-04-24 10:45 | disposition home or self-care (01) ==
PROVIDERS: PCP Nurse Practitioner Family; Visit Provider Nurse Anesthetist, Certified Registered
DX: M79.671 Pain in right foot (principal); M79.672 Pain in left foot; G89.29 Other chronic pain; F32.A Depression, unspecified; E78.00 Pure hypercholesterolemia, unspecified; I10 Essential (primary) hypertension; F17.200 Nicotine dependence, unspecified, uncomplicated; Z79.1 Long term (current) use of non-steroidal anti-inflammatories (NSAID); Z79.899 Other long term (current) drug therapy
CPT/HCPCS: 64445; 64450; J0665; J1100; J2003